=== PATIENT | male | born 1955 | race Caucasian/White ===

== ENCOUNTER 2024-01-18 09:03 | Outpatient (REF) | payer MEDICARE, SELFPAY ==
[2024-01-18 10:18] LABS: Anion Gap 10 (12-20); Blood Urea Nitrogen 14 mg/dL (9-16); Calcium 9.5 mg/dL (8.4-10.2); Carbon Dioxide 26 mmol/L (22-29); Chloride 109 mmol/L (96-108); Estimated Glomerular Filt Rate > 60; Glucose Random 102 mg/dL (60-115); Potassium 4.3 mmol/L (3.3-5.1); Sodium 141 mmol/L (135-145)
[2024-01-18 10:38] LABS: Syphilis Screen Nonreactive (Nonreactive)
[2024-01-18 10:42] LABS: Erythrocyte Sedimentation Rate 3 MM/HR (0-15)
[2024-01-19 13:09] LABS: Lyme Abs Screen <0.90 index
[2024-01-22 22:08] LABS: IgA 142 mg/dL (70-320); IgG 826 mg/dL (600-1540); IgM 236 mg/dL (50-300)
== END 2024-01-18 09:04 | disposition home or self-care (01) ==
LOC: HO.LAB 09:03
PROVIDERS: Visit Provider Psychiatry & Neurology Neurology
DX: R26.9 Unspecified abnormalities of gait and mobility (principal)
CPT/HCPCS: 36415; 80048; 82550; 82784; 85652; 86334; 86617; 86618; 86780

== ENCOUNTER 2024-11-13 09:24 | Outpatient (REF) | payer MEDICARE, SELFPAY ==
[2024-11-13 11:04] LABS: C Reactive Protein 0.13 mg/dL (< or = 0.50)
[2024-11-13 11:30] LABS: Erythrocyte Sedimentation Rate 3 MM/HR (0-15)
[2024-11-14 06:23] LABS: Lyme Abs Screen <0.90 index
== END 2024-11-13 09:25 | disposition home or self-care (01) ==
LOC: HO.LAB 09:24
PROVIDERS: PCP Pediatrics; Visit Provider Psychiatry & Neurology Neurology
DX: G43.009 Migraine without aura, not intractable, without status migrainosus (principal)
CPT/HCPCS: 36415; 85652; 86140; 86617; 86618

== ENCOUNTER 2024-11-25 07:56 | Outpatient (REF) | payer MEDICARE, SELFPAY ==
--- NOTE | ~2024-11-25 | MR_ITS ---
EXAMINATION: MR BRAIN WITHOUT CONTRAST CLINICAL INFORMATION: Tremor. Ataxia. COMPARISON: None available. TECHNIQUE: MRI of the brain was obtained using routine sequences without contrast. FINDINGS: No restricted diffusion. No acute intracranial hemorrhage, mass effect, midline shift, hydrocephalus or herniation. Artis-white matter differentiation is normal. Posterior cranial fossa contents demonstrated no signal abnormality or gross mass effect. No susceptibility signal abnormality within the substantia nigra. Sellar/suprasellar region is normal. Craniocervical junction is intact and normal. Flow-void signal within the main cerebral vessels is normal. Polypoid mucosal thickening, maxillary sinuses. Mucosal thickening ethmoid cells. MR/MR head/brain wo con IMPRESSION: No acute or structural brain abnormality. Electronically signed by: Reynaldo Bruce MD 11/27/2024 11:45 AM EDT
--- OUTSIDE RECORDS SUMMARY | 2024-11-25 08:01 | XMS_ITS | Encounter Summary ---
Author Organization [facility] [place] [address] Care Team Providers Care Ethnology Teacher Name Role Phone Sanna Webb MD Primary Care Provider [phone] Reason for Referral * Imaging (Routine) - Authorized Specialty Diagnoses / Procedures Referred By Contac t Referred To Contact Radiology Diagnoses Encounter for screening for abdominal aortic aneurysm (AAA) in patient 50 years of age or older with history of smoking Procedures US Abdomen Aortic Aneurysm Screening Edita Arguello MD [address] [place] [phone] Phone: tel: fax: [address] [address] Phone: tel: Referral ID Status Reason Start Date Expiration Date V isits Requested Visits Authorized [id number] Authorized 11/21/2024 11/21/2025 1 1 Reason for Visit * Reason Comments Follow-up Encounter Details Date Type Department Care Team (Late st Contact Info) Description 11/21/2024 10:00 AM EDT Office Visit Vascular Surgery - [place] [address] [place] [phone] Ediat Arguello MD [address] [place] [phone] Encounter for screening for abdominal aortic aneurysm (AAA) in patient 50 years of age or older with history of smoking (Primary Dx); Infrarenal abdominal aortic aneurysm (AAA) without rupture ([facility]/HCC V24) Social History Tobacco Use Types Packs/Day Years Used Date Smoking Tobacco: Never Smokeless Tobacco: Never Alcohol Use Standard Drinks/Week Comments Yes 0 (1 standard drink = 0.6 oz pur e alcohol) Sex and Gender Information Value Date Recorded Sex Assigned at Not on file Legal Sex Male 10:26 AM EST Gender Identity Not on file Sexual Orientation Not on file documented as of this encounter Last Filed Vital Signs Vital Sign Reading Time Taken Comments Blood Pressure 128/70 11/21/2024 10:05 AM EDT Pulse 51 11/21/2024 10:05 AM EDT Temperature - - Respiratory Rate - - Oxygen Saturation 96% 11/21/2024 10:05 AM EDT Inhaled Oxygen Concentration - - Weight 109 kg (241 lb) 11/21/2024 10:05 AM EDT Height 188 cm (6' 2 ) 11/21/2024 10:05 AM EDT Body Mass Index 30.94 11/21/2024 10:05 AM EDT documented in this encounter Progress Notes * Edita Arguello MD - 11/21/2024 10:00 AM EDT Your aortic US shows no significant change in your small aneurysm, continue on current medication ,including aspirin 81 mg daily and statin medications.Recheck in 1 year,repeat aortic us in 1 year before next visit, Continue followup with your PCP.walk daily abd often. * Dina Pantoja MA - 11/21/2024 10:00 AM EDT Abdominal Aortic Ultrasound - 11/04/2024 HISTORY: Known AAA. TECHNIQUE: Grayscale, color Doppler, and spectral Doppler ultrasound of the abdominal aorta. COMPARISON: 03/15/2024. FINDINGS: The proximal aorta measures 2.3 cm AP. The mid aorta measures 2.4 cm AP. The distal aorta measures 2.8 cm AP. The common iliac artery measures 1.6 cm on the right and 1.5 cm on the left. There is mild diffuse atherosclerotic luminal irregularity. IMPRESSION: Mild ectasia of the distal abdominal aorta, similar to the previous study. * Edita Arguello MD - 11/21/2024 10:00 AM EDT Images from the original note were not included. PATIENT: Tino Hunter ENCOUNTER: 11/21/2024 EMRN: [id number] : 1955 PCP: Sanna Webb MD CHIEF COMPLAINT: Follow-up HPI: This 69 y.o. male presents for follow-up of small abdominal aortic aneurysm and discussed results of aortic ultrasound done at the [facility] on 03/15/2024. Patient has a history of chronic low back pain and arthritis of hips and shoulders. He also has a history of hypertension hypercholesterolemia, aspirin 81 mg daily and statin medication. Patient is compliant in taking his medications. He walks without any aid. He lives with his . 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 Repeat in five years. COLONOSCOPY 08/31/2017 PROCEDURE: HISTORICAL COLONOSCOPY; COMMENT: 6 mm descending colon polyp: tubular adenoma. COLONOSCOPY 06/06/2016 PROCEDURE: HISTORICAL COLONOSCOPY; COMMENT: adenomas COLONOSCOPY 11/12/2010 PROCEDURE: HISTORICAL COLONOSCOPY; COMMENT: adenoma. COLONOSCOPY 12/21/2022 PROCEDURE: HISTORICAL COLONOSCOPY HIP ARTHROPLASTY PROCEDURE: HISTORICAL HIP REPLACEMENT; COMMENT: Left HIP ARTHROPLASTY 08/2011 PROCEDURE: HISTORICAL HIP REPLACEMENT; COMMENT: right LUMBAR LAMINECTOMY 05/2020 PROCEDURE: HISTORICAL LUMB LAMINECTOMY; COMMENT: L2-3 OTHER SURGICAL HISTORY 07/2014 PROCEDURE: [place] VLVP MITRAL VALVE W/BYPASS RAD RCNSTJ W/WO RING; COMMENT: valve repair, Dr. Sánchez UPPER GASTROINTESTINAL ENDOSCOPY 08/25/2011 PROCEDURE: [place] UPPER GI ENDOSCOPY PERFORMED; COMMENT: erosive esophagitis MEDICATIONS: (reviewed, flow sheet updated) Outpatient Medications Marked as Taking for the 11/21/24 encounter (Office Visit) with Edita Arguello MD Medication Sig Dispense Refill acetaminophen (TYLENOL) 500 mg tablet Take 2 Tablets by mouth every 6 hours as needed. aspirin 81 mg EC tablet Take 81 mg by mouth daily. atorvastatin (LIPITOR) 10 mg tablet Take 1 Tab by mouth daily. cyanocobalamin (VITAMIN B-12) 1,000 mcg tablet Take 1 tablet by mouth daily. divalproex (DEPAKOTE ER) 250 mg 24 hr tablet losartan (COZAAR) 25 mg tablet Take 25 mg by mouth daily. metoprolol succinate (TOPROL-XL) 50 mg 24 hr tablet Take 1 Tablet by mouth daily. sildenafiL (VIAGRA) 25 mg tablet Take 1 Tablet by mouth as needed for Erectile Dysfunction for up to 30 days. ALLERGIES: (reviewed, flow sheet updated) Allergies Allergen Reactions Ciprofloxacin Swelling ROS: GENERAL: No malaise, significant weight loss or fever HEENT: No changes in hearing or vision, nose bleeds or other nasal problems NECK: No lumps, goiter, pain or significant neck swelling RESPIRATORY: No cough, wheezing or shortness of breath CARDIAC: No chest pain or palpitations GI: No abdominal discomfort, blood in stools or black stools : No dysuria, frequency or incontinence MUSCULOSKELETAL: SEE HPI SKIN: No lesions, rash or itching ENDOCRINE: No cold or heat intolerance, polyuria, polydipsia or goiter. NEURO: No persistent headache, syncope, seizures, weakness or numbness VASCULAR: SEE HPI PHYSICAL EXAM: Vitals: 11/21/24 1005 BP: 128/70 BP Location: Left arm Patient Position: Sitting Pulse: 51 SpO2: 96% Weight: 109 kg (241 lb) Height: 1.88 m (74 ) APPEARANCE: Alert and in no acute distress EYES: Pupils, conjunctiva and sclera normal.. NECK: Neck supple, no adenopathy HEART: RRR with no murmurs appreciated LUNG: clear to auscultation GI: soft and non-tender LYMPH NODES: grossly normal MUSCULOSKELETAL: Spine ROM normal. Muscular strength intact. SKIN: is grossly normal NEURO: Awake, alert and oriented x 3 PSYCHIATRIC: Mood and affect are normal VASCULAR: Carotid pulses palpable bilaterally no bruit no JVD. Brachial radial pulses palpable bilaterally. Mild tremors of the hand. Femorals, dorsalis pedis posterior tibial pulses palpable bilaterally. There is no leg edema no ulcers no gangrene. Toes are warm well-perfused. DIAGNOSTIC TESTING:US AORTA RENAL AORTA NODES ( (Order [id number]) Status: Final result PACS Images Show images for US AORTA RENAL AORTA NODES Study Result Narrative & Impression [facility] Diagnostic Imaging Department [address] [place] [id number] Patient: TINO HUNTER /Age/Sex: 1955 - 69 - M Unit#: [id number] [facility] Mn[facility]onic/Ordering Site: AORTA/SPUS Ordering Physician: EDITA ARGUELLO MD US Aorta Renal Aorta Nodes - 03/15/24 - Report Status:Signed INDICATION: Abdominal aortic aneurysm FINDINGS: Ultrasound of the aorta was obtained. Prior relevant imaging studies: Compared to multiple prior studies most recent from March 14, 2023. CTA of the abdomen and pelvis from March 06, 2019 reviewed. Proximal aorta not visualized secondary to bowel gas. Distal abdominal aorta measures up to 3.1 cm transversely and 2.7 cm axially. IMPRESSION: Similar mild ectasia of the distal abdominal aorta. Dictating Physician: ELAN CHAMPAGNE MD Electronically Signed by: ELAN CHAMPAGNE MD Dic Date/Time: 03/15/24 1359 Sign date/Time: 03/15/24 1408 Order Report US AORTA RENAL AORTA NODES (Order #[id number]) on 03/15/24 MyChart Comments Release Not seen Signed by Signed Date/Time Phone Pager ELAN CHAMPAGNE 03/15/2024 2:03 PM [phone] I independently reviewed the study reports. Images were available for review. ASSESSMENT: Infrarenal aortic aneurysm nonruptured PLAN: 69 y.o. male with arterial sclerosis of the aorta and ectasia of the infrarenal aorta, repeated duplex aortic study shows no significant change for the past 2 years. No vascular intervention needed. Recheck in 1 year. Repeat aortic ultrasound in 1 year. Continue follow-up with his PCP for his other comorbidities. Continue all current medications including aspirin 81 mg daily and statin medication. Walk daily and frequently. Continue with daily stretching exercise Patient was educated on the disease process. We discussed signs and symptoms of aortic rupture and distal embolization. His questions answered Patient was counseled on risk factor modification. CC: Sanna Webb MD documented in this encounter Plan of Treatment Upcoming Encounters Date Type Department Care Team (Late st Contact Info) Description 11/26/2025 10:00 AM EDT Office Visit Vascular Surgery - [place] [address] [place] [phone] Edita Arguello MD [address] [place] [address] Scheduled Orders Name Type Priority Associated Diagnoses Orde r Schedule US Abdomen Aortic Aneurysm Screening Imaging Routine Encounter for screening for abdominal aortic aneurysm (AAA) in patient 50 years of age or older with history of smoking Expected: 11/21/2025, Expires: 11/21/2025 documented as of this encounter Visit Diagnoses Diagnosis Encounter for screening for abdominal aortic aneurysm (AAA) in patient 50 years of age or older with history of smoking- Primary Infrarenal abdominal aortic aneurysm (AAA) without rupture ([facility] V24) documented in this encounter Care Teams Ethnology Teacher Relationship Specialty Start Date End Date Sanna Webb MD [address] [place] [id number] PCP - General 01/03/01 documented as of this encounter
--- OUTSIDE RECORDS SUMMARY | 2024-11-25 08:01 | XMS_ITS | Clinical Summary ---
Author Organization [facility] Address [address] [place] [address] Phone Care Team Providers Care Envelope Machine Adjuster Name Role Phone Sanna Webb MD Primary Care Provider [phone] Allergies Active Allergy Reactions Criticality Noted Date Comments Ciprofloxacin Swelling 04/05/2023 Medications acetaminophen (TYLENOL) 500 mg tablet Take 2 Tablets by mouth every 6 hours as needed. Active aspirin 81 mg EC tablet Take 81 mg by mouth daily. Active atorvastatin (LIPITOR) 10 mg tablet Take 1 Tab by mouth daily. 8 Active divalproex (DEPAKOTE ER) 250 mg 24 hr tablet 4 Active losartan (COZAAR) 25 mg tablet Take 25 mg by mouth daily. Active metoprolol succinate (TOPROL-XL) 50 mg 24 hr tablet Take 1 Tablet by mouth daily. Active sildenafiL (VIAGRA) 25 mg tablet Take 1 Tablet by mouth as needed for Erectile Dysfunction for up to 30 days. 3 Active cyanocobalamin (VITAMIN B-12) 1,000 mcg tablet Take 1 tablet by mouth daily. 1 Active Active Problems Problem Noted Date Diagnosed Date Abdominal aortic aneurysm (A AA) without rupture (CMS/HCC V24) 03/13/2019 Aneurysm of left common iliac artery (CMS/HCC V2 4) 01/22/2018 Overview (09/02/2024): Incidental finding by urology on abdominal CT 01/15. 2 cm. (3 cm usually threshold for repair unless symptomatic) No mention of AAA. Depressed left ventricular ejection fraction Hematuria 01/22/2018 Acquired dilation of ascendi ng aorta and aortic root ([facility] V24) 11/09/2016 Overview (09/02/2024): Dilated aortic root and ascending aorta 10/14 ([place]). 3.8 cm SVT (supraventricular tachycardia) ([facility] V24) 10/01/2011 Overview (09/02/2024): HR 150 postop 09/11 Holter cardiology 05/13 Multiple brief episodes symptomatic SVT Esophageal erosions 08/25/2011 Overview (09/02/2024): EGD 08/11---mild erosive esophagitis Cholelithiasis 04/14/2010 Hypercholesteremia 07/18/2007 Overview (09/02/2024): 07/06, Intol simvastatin, pravastatin (constipation) Anxiety 07/07/2007 Hip arthritis 07/07/2007 Overview (09/02/2024): Left THR Right THR 09/11 Tremor 07/07/2007 Overview (09/02/2024): Since teens Vision loss 07/07/2007 Overview (09/02/2024): 07/06--Plaque (prob cholesterol) left eye Encounters Date Type Department Care Team Description 11/21/2024 10:00 AM EDT Office Visit V[facility] - [place] [address] [place] [address] Edita Ledesma MD Encounter for screening for abdominal aortic aneurysm (AAA) in patient 50 years of age or older with history of smoking (Primary Dx); Infrarenal abdominal aortic aneurysm (AAA) without rupture ([facility] V24) 11/04/2024 8:28 AM EDT - 11/04/2024 11:59 PM EDT Hospital Encounter [facility] Ultrasound [address] [place] [phone] Infrarenal abdominal aortic aneurysm (AAA) without rupture ([facility] V24) Discharge Disposition: Home or Self Care from Last 3 Months Immunizations Name Administration Dates Next Due Influenza trivalent, 0.5mL ( Fluad) 65yo and older 04/08/2022,05/14/2021,04/10/2020 Influenza trivalent, 0.5mL, preservative free (Fluarix; FluLaval; Fluzone) ages 6mo and older (Afluria) 3 years and older 05/04/2019,04/18/2011 Influenza, Unspecified 04/18/2023 Pfizer SARS-CoV-2 COVID-19, mRNA, LNP-S, preservative free 05/14/2021,11/12/2020,10/12/2020 Pneumococcal conjugate 20 va lent (Prevnar 20, PCV 20) 2mo and older 01/05/2023 Tdap Tetanus diptheria acell ular pertussis (Boostrix; Adacel) 7yo and older 01/05/2023,08/19/2011 Surgical History Surgery Date Site/Laterality Comments HIP ARTHROPLASTY PROCEDURE: HISTORICAL HIP REPLACEMENT; COMMENT: Left CHOLECYSTECTOMY 05/03/2010 PROCEDURE: HISTORICAL CHOLECYSTECTOMY HIP ARTHROPLASTY 08/2011 PROCEDURE: HISTORICAL HIP REPLACEMENT; COMMENT: right OTHER SURGICAL HISTORY 07/2014 PROCEDURE: [place] VLVP MITRAL VALVE W/BYPASS RAD RCNSTJ W/WO RING; COMMENT: valve repair, Dr. Sánchez COLONOSCOPY 12/07/2006 PROCEDURE: HISTORICAL COLONOSCOPY; COMMENT: Normal; had adenoma in 10/03. Repeat in five years. COLONOSCOPY 08/31/2017 PROCEDURE: HISTORICAL COLONOSCOPY; COMMENT: 6 mm descending colon polyp: tubular adenoma. COLONOSCOPY 06/06/2016 PROCEDURE: HISTORICAL COLONOSCOPY; COMMENT: adenomas UPPER GASTROINTESTINAL ENDOSCOPY 08/25/2011 PROCEDURE: [place] UPPER GI ENDOSCOPY PERFORMED; COMMENT: erosive esophagitis COLONOSCOPY 11/12/2010 PROCEDURE: HISTORICAL COLONOSCOPY; COMMENT: adenoma. CATARACT EXTRACTION PROCEDURE: HISTORICAL CATARACT REMOVAL; COMMENT: 09/2018 LUMBAR LAMINECTOMY 05/2020 PROCEDURE: HISTORICAL LUMB LAMINECTOMY; COMMENT: L2-3 CHOLECYSTECTOMY PROCEDURE: [place] LAPAROSCOPY SURG CHOLECYSTECTOMY COLONOSCOPY 12/21/2022 PROCEDURE: HISTORICAL COLONOSCOPY Medical History Medical History Date Comments Aneurysm of left common pippa c artery ([facility] V24) 01/22/2018 DX:Aneurysm of left common i liac artery (HCC) History of bilateral hip replacements 01/22/2018 DX:History of bilateral hip replacements Dilated aortic root (CMS/HCC V24) 11/09/2016 DX:Dilated aortic root (HCC); COMMENT: 10/14 ([place]). 3.8 cm Depressed left ventricular e jection fraction 01/22/2018 DX:Depressed left ventricula r ejection fraction Hematuria 01/22/2018 DX:Hematuria Cataract DX:Cataract; COM MENT: bilateral Family History Medical History Relation Name Comments Diabetes Brother Coronary artery disease Mother Relation Name Status Comments Brother Mother Social History Tobacco Use Types Packs/Day Years Used Date Smoking Tobacco: Never Smokeless Tobacco: Never Alcohol Use Standard Drinks/Week Comments Yes 0 (1 standard drink = 0.6 oz pur e alcohol) Sex and Gender Information Value Date Recorded Sex Assigned at Not on file Legal Sex Male 10:26 AM EST Gender Identity Not on file Sexual Orientation Not on file Obstetrics History Last Filed Vital Signs Vital Sign Reading [...] Mass Index 30.94 11/21/2024 10:05 AM EDT Plan of Treatment Upcoming Encounters Date Type Department Care Team (Late st Contact Info) Description 11/26/2025 10:00 AM EDT Office Visit V[facility] Surgery - [place] [address] [place] [phone] Edita Ledesma MD [address] [place] [address] Health Maintenance Due Date Last Done Comments Cervical Cancer Screening: Pap Smear 01/19/1976 Social Influencers of Health Screening 07/09/2022 COVID-19 Vaccine (10 - Pfizer risk season) 2024 04/26/2024, 04/24/2023, 04/25/2022, Additional history exists Depression Screening 04/10/2025 04/10/2024 Falls Risk Assessment 04/10/2025 04/10/2024 Hypertension/CHF/CAD Annual BMP Blood Test 04/10/2025 04/10/2024, 04/10/2024 Medicare Annual Wellness Visit 04/10/2025 04/10/2024 Colorectal Cancer Screening: Colonoscopy 12/22/2027 12/21/2022 Cholesterol Screening (Lipid Panel) 04/10/2029 04/10/2024, 04/10/2024 RSV Immunization Adult Patients (1 - 1-dose 75+ series) 2030 DTaP,Tdap,and Td Vaccines (3 - Td or Tdap) 01/05/2033 01/05/2023, 08/19/2011 Hepatitis C Screening Completed 09/22/2000 Pneumococcal Vaccine: 50+ Years Completed 01/05/2023 Zoster Vaccines Completed 02/21/2024, 12/07/2023 Influenza Vaccine Completed 04/16/2024, , 04/17/2023, Additional history exists HIB Vaccines Aged Out No longer eligi ble based on patient's age to complete this topic HPV Vaccines Aged Out No longer eligi ble based on patient's age to complete this topic Hepatitis A Vaccines Aged Out No long er eligible based on patient's age to complete this topic Hepatitis B Vaccines Aged Out No long er eligible based on patient's age to complete this topic IPV Vaccines Aged Out No longer eligi ble based on patient's age to complete this topic MMR Vaccines Aged Out No longer eligi ble based on patient's age to complete this topic Meningococcal ACWY Vaccine Aged Out N o longer eligible based on patient's age to complete this topic Meningococcal B Vaccine Aged Out No l onger eligible based on patient's age to complete this topic RSV Immunization Patients Under 20 months Aged Out No longer eligible based on patient's age to complete this topic Varicella Vaccines Aged Out No longer eligible based on patient's age to complete this topic Procedures Procedure Name Priority Date/Time Associated Diagnosis Comments US RETROPERITONEAL COMPLETE Routine 11/04/2024 8:47 AM EDT Infrarenal abdominal aortic aneurysm (AAA) without rupture (CMS/HCC V24) HM DEPRESSION SCREENING Routine 04/10/2024 ANNUAL BMP BLOOD TEST Routine 04/10/2024 FALLS RISK ASSESSMENT Routine 04/10/2024 LIPID PANEL Routine 04/10/2024 COLONOSCOPY Routine 12/21/2022 HEPATITIS C SCREENING Routine 09/22/2000 from Last 3 Months or Most Recently Relevant to Health Maintenance Results * US Retroperitoneal Complete (11/04/2024 8:47 AM EDT) Anatomical Region Laterality Modality Body Ultrasound 11/05/2024 2:13 PM EDT Impressions 11/05/2024 2:35 PM EDT Mild ectasia of the distal abdominal aorta, similar to the previous study. -------- FINAL REPORT -------- Dictated By: Christiano Hayden Dictated Date: 11/05/2024 14:13 ET Assigned Physician: Christiano Hayden Reviewed and Electronically Signed By: Christiano Hayden Signed Date: 11/05/2024 14:35 ET Workstation ID: [id number] Transcribed By: Self Edit Transcribed Date: 11/05/2024 14:13 ET Narrative 11/05/2024 2:35 PM EDT PROCEDURE: Abdominal aortic ultrasound. HISTORY: Known AAA. TECHNIQUE: Grayscale, color Doppler, and spectral Doppler ultrasound of the abdominal aorta. COMPARISON: 03/15/2024. FINDINGS: The proximal aorta measures 2.3 cm AP. The mid aorta measures 2.4 cm AP. The distal aorta measures 2.8 cm AP. The common iliac artery measures 1.6 cm on the right and 1.5 cm on the left. There is mild diffuse atherosclerotic luminal irregularity. Procedure Note Christiano Hayden MD - 11/05/2024 PROCEDURE: Abdominal aortic ultrasound. HISTORY: Known AAA. TECHNIQUE: Grayscale, color Doppler, and spectral Doppler ultrasound ofthe abdominal aorta. COMPARISON: 03/15/2024. FINDINGS: The proximal aorta measures 2.3 cm AP. The mid aorta measures 2.4 cm AP. The distal aorta measures 2.8 cm AP. The common iliac artery measures 1.6 cm on the right and 1.5 cm on theleft. There is mild diffuse atherosclerotic luminal irregularity. IMPRESSION: Mild ectasia of the distal abdominal aorta, similar to the previousstudy. -------- FINAL REPORT -------- Dictated By: Christiano Hayden Dictated Date: 11/05/2024 14:13 ET Assigned Physician: Christiano Hayden Reviewed and Electronically Signed By: Christiano Hayden Signed Date: 11/05/2024 14:35 ET Workstation ID: [id number] Transcribed By: Self Edit Transcribed Date: 11/05/2024 14:13 ET Edita Ledesma MD [facility] US PROCEDURES Final R esult * Annual BMP Blood Test (04/10/2024) [facility] Annual BMP Blood Test abstracted Result [facility] HEALTH MAINTENANCE Final Result * Falls Risk Assessment (04/10/2024) [facility] Falls Risk Assessment abstracted Result [facility] HEALTH MAINTENANCE Final Result * Depression Screening (04/10/2024) [facility] Depression Screening abstracted Result [facility] HEALTH MAINTENANCE Final Result * (ABNORMAL) Lipid panel (04/10/2024) [facility] LDL/HDL Ratio 4 0 - 4 Triglycerides 136 0 - 150 mg/dL Cholesterol 188 0 - 200 mg/dL HDL 48 >=40 mg/dL LDL Cholesterol 112(A) 0 - 100 mg/dL Blood Venous blood specimen / Unknown Result [facility] LAB BLOOD ORDERABLES Aleyda l Result * Colonoscopy (12/21/2022) [facility] Colonoscopy negative, abstracted Anatomical Region Laterality Modality Other Historical Provider HEALTH MAINTENANCE Final Result * Hepatitis C Screening (09/22/2000) Pathologist [facility] Hepatitis C Screening abstracted Historical Provider HEALTH MAINTENANCE Final Result from Last 3 Months or Most Recently Relevant to Health Maintenance Insurance MEDICARE [facility] Care Teams Envelope Machine Adjuster Relationship Specialty Start Date End Date Sanna Webb MD [address] [place] [id number] PCP - General 01/03/01
== END 2024-11-25 07:57 | disposition home or self-care (01) ==
LOC: HO.MRI 07:56
PROVIDERS: Visit Provider Psychiatry & Neurology Neurology
DX: R25.1 Tremor, unspecified (principal); R27.0 Ataxia, unspecified
CPT/HCPCS: 70551

== ENCOUNTER → 2024-11-25 08:10 | Outpatient (BNV) | payer MEDICARE, SELFPAY | PROVIDERS: Visit Provider Radiology Diagnostic Radiology | DX: R25.1 Tremor, unspecified (principal); R27.0 Ataxia, unspecified | CPT/HCPCS: 70551 ==

== ENCOUNTER 2025-05-14 11:39 | Outpatient (AMB) | payer MEDICARE, SELFPAY ==
--- NOTE | 2025-05-14 11:43 | MHC.OFFVIS ---
Intake Visit Reasons: 3m Allergies ciprofloxacin (From Cipro) Allergy (Unknown, Verified 03/13/25 07:44) Unknown HPI Comments Details: 70 yo man with mild mild bilateral hand tremor, mild cognitive dysfunction, chronic daily headaches. He had a lumbar surgery a few years ago when his dura was probably punctured, as he was told. His MRI of brain at [facility] [facility] in 2024 was normal. One time he went to an urgent care center and was diagnosed and treated for babesiosis but headaches continued. He said that he was about the same. Headaches were still happening. No anxieyt. No new symptoms. Headache was better at night or in bed and reappeared after he moved out of bed. [facility] Medical History (Updated 05/14/25 @ 12:08 by Pieter Jaramillo MD) Ataxia Gait disorder Carpal tunnel syndrome, bilateral upper limbs Carpal tunnel syndrome Anxiety disorder Migraine without aura Cerebellar ataxia Familial tremor Encephalopathy Review of Systems Const Details: Constitutional:?No fever, chills, fatigue, weight loss, or night sweats. HEENT:?c/o headache. No vision changes, hearing loss, nasal congestion, sore throat. Neurological:?No dizziness, syncope, seizures, numbness, tingling, weakness, tremors, memory loss. Psychiatric:?No anxiety, depression, mood swings, sleep disturbance, or hallucinations. Endocrine:?No heat/cold intolerance, polydipsia, polyuria, or hair/skin changes. Hematologic/Lymphatic:?No easy bruising, bleeding, or lymphadenopathy. Integumentary (Skin):?No rash, lesions, itching, or color changes. ? Physical Exam Neuro Other: Mental Status: Alert and oriented to person, place, and time. Normal attention. Normal spontaneous speech, fluency, and comprehension. Cranial Nerves: CN II: Visual garcia full to confrontation, visual acuity intact. CN III, IV, : Pupils equal, round, reactive to light and accommodation. Extraocular movements are normal. CN V: Facial sensation is normal. CN VII: Facial movements symmetrical. CN VIII: Hearing intact to bedside conversation is normal. CN IX, X: Palate elevates symmetrically. CN XI: Shoulder shrug and head turn symmetrical. CN XII: Tongue midline without atrophy or fasciculations. [id number] bilateral [id number]-[id number] ataxia and tremor. Speech: Normal; no dysarthria or tremor. Assessment & Plan Assessment & Plan (1) Familial tremor: Code(s): G25.0 - Essential tremor Category: Medical (2) Headache due to low cerebrospinal fluid pressure: Comment: Meds tried: Topiramate (helped but caused constipation), metoprolol, cyproheptadine, Depakote MRI brain WO at [facility] in Oct 2024: WNL NCV/EMG LE Chronic right lower radiculopathy. Otherwise, no significant abnormality noted. 03/14/24. CT brain WO at [facility] in 2020: Mild cerebellar atrophy, small left caudate area mixed density lesion MRI brain WO at [facility] in 2020: L max sinus disease, otherwise ok MRI brain WWO at [facility] in Apr 2023: No sig finding Code(s): R51.0 - Headache with orthostatic component, not elsewhere classified Category: Medical Plan Impression: 70 years old man with chronic daily postural headache that seems to go away or significantly improved when he is in the bed and reappears when he is up and about. It has not responded much to medicines. Few years ago he had a lumbar procedure done and he was told that there was some complications and his dura was punctured. He said that he was having problem since then. His examination now was nonfocal. Low spinal fluid headache was a possibility. He was educated about this possibility and its potential tedious investigations. CT myelogram was requested to see if we could find the leak. In the meantime he could try topiramate 25 mg twice a day, which has helped him in the past. Orders: Orders CT lumbar post myelography Today R51.0 - Headache with orthostatic component, not elsewhere classified Medications: New topiramate 25 mg PO BID 180 tabs 0RF Discontinued divalproex Discontinued Reason: Doctor's Order 250 mg PO BID 180 tabs 1RF Coding Level of Care Code Est Pt Level 4 (57706) Diagnoses Familial tremor G25.0 Headache due to low cerebrospinal fluid pressure R51.0
== END 2025-05-14 12:09 | disposition home or self-care (01) ==
LOC: HO.HSM 11:40
PROVIDERS: PCP Pediatrics; Visit Provider Psychiatry & Neurology Neurology
DX: G25.0 Essential tremor (principal); R51.0 Headache with orthostatic component, not elsewhere classified; G43.009 Migraine without aura, not intractable, without status migrainosus
CPT/HCPCS: 99214

== ENCOUNTER → 2025-05-14 11:39 | Outpatient (BNVA) | payer MEDICARE, SELFPAY | PROVIDERS: PCP Pediatrics; Visit Provider Psychiatry & Neurology Neurology | DX: R51.0 Headache with orthostatic component, not elsewhere classified (principal); G25.0 Essential tremor | CPT/HCPCS: 99212 ==

== ENCOUNTER 2025-06-27 08:55 | Outpatient (REF) | payer MEDICARE, SELFPAY ==
--- OUTSIDE RECORDS SUMMARY | 2025-06-27 08:59 | XMS_ITS ---
Author Name [facility] Organization Unknown Care Team Organization Name Specialty Phone Email Start Date End Da te [facility] ACO 03/19/2025 [facility] Ariane Porter Primary Care 07/12/2023 024 [facility] Etelvina Sahni MD Primary Care 10/05/2022 03/18/2024 [facility] Termed, PROVIDER Primary Care 06/07/202202/28
--- OUTSIDE RECORDS SUMMARY | 2025-06-27 08:59 | XMS_ITS | Clinical Summary ---
Author Organization [facility] Address [address] [place] [address] Care Team Providers Care Rivet Passer Name Role Phone Marek Webb MD Primary Care Provider Social History Tobacco Use Types Packs/Day Years Used Date Smoking Tobacco: Never Assessed Sex and Gender Information Value Date Recorded Sex Assigned at Not on file Gender Identity Not on file Sexual Orientation Not on file Job Start Date Occupation Industry Not on file Not on file Not on file Plan of Treatment Health Maintenance Due Date Last Done Comments Hepatitis C Screening 1955 COVID-19 Vaccine (#1) 1955 Depression Screening 1967 Preventative Health Evaluation 1973 DTap / Tdap / Td (1 - Tdap) 1974 Colon Cancer Screening (Colonoscopy) 01/19/2000 Shingrix-Zoster Vaccine (1 of 2) 2005 Fall Risk Assessment 01/19/2020 Pneumococcal Vaccine (1 of 1 - PCV) 01/19/2020 Influenza Vaccine (#1) 2025 RSV Adult > 60+ Yrs or Pregn ant (1 - 1-dose 75+ series) 2030 Hepatitis B Vaccines Aged Out No long er eligible based on patient's age to complete this topic RSV Ped < 20 months Aged Out No longe r eligible based on patient's age to complete this topic Care Teams Rivet Passer Relationship Specialty Start Date End Date Marek Webb MD PCP - General Hand Cementer 05/05/20
--- OUTSIDE RECORDS SUMMARY | 2025-06-27 08:59 | XMS_ITS | Clinical Summary ---
Author Organization [facility] [place] [address] Phone Care Team Providers Care Unhairer Name Role Phone Sanna Webb MD Primary Care Provider [phone] Allergies Active Allergy Reactions Criticality Noted Date Comments Ciprofloxacin Swelling 04/05/2023 Medications acetaminophen (TYLENOL) 500 mg tablet Take 2 Tablets by mouth every 6 hours as needed. Active aspirin 81 mg EC tablet Take 81 mg by mouth daily. Active divalproex (DEPAKOTE ER) 250 mg 24 hr tablet 04/08/2024 Active losartan (COZAAR) 25 mg tablet Take 25 mg by mouth daily. Active metoprolol succinate (TOPROL-XL) 50 mg 24 hr tablet Take 1 Tablet by mouth daily. Active atorvastatin (LIPITOR) 20 mg tablet Take 1 tablet (20 mg total) by mouth 1 (one) time each day. Active cyanocobalamin (VITAMIN B-12) 1,000 mcg tablet Take 1 tablet (1,000 mcg total) by mouth 1 (one) time each day. Active Active Problems Problem Noted Date Diagnosed Date Nephrolithiasis 05/14/2025 Overview (05/14/2025): L side HTN (hypertension) 05/14/2025 Osteoarthritis of hip 05/14/2025 Overview (05/14/2025): Left hip replacement in 2000. Right hip replacement on 09/02/2011 Intractable chronic paroxysmal hemicrania 2024 History of mitral valve repair 05/14/2025 Abdominal aortic aneurysm (A AA) without rupture ([facility] V24) 03/13/2019 Aneurysm of left common iliac artery ([facility] V2 4) 01/22/2018 Overview (09/02/2024): Incidental finding by urology on abdominal CT 01/15. 2 cm. (3 cm usually threshold for repair unless symptomatic) No mention of AAA. 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 3.8 cm SVT (supraventricular tachycardia) ([facility] V24) 10/01/2011 Overview (09/02/2024): HR 150 postop 09/11 Holter cardiology 05/13 Multiple brief episodes symptomatic SVT Hypercholesteremia 07/18/2007 Overview (09/02/2024): 07/06, Intol simvastatin, pravastatin (constipation) Tremor 07/07/2007 Overview (09/02/2024): Since teens Resolved Problems Problem Noted Date Diagnosed Date Resolved Date History of MVR with cardiopulmonary bypass 05/14/2025 05/14/2025 Hematuria 01/22/2018 05/14/2025 Esophageal erosions 08/25/2011 05/14/20 Overview (09/02/2024): EGD 08/11---mild erosive esophagitis Cholelithiasis 04/14/2010 05/14/2025 Hip arthritis 07/07/2007 05/14/2025 Overview (09/02/2024): Left THR Right THR 09/11 Vision loss 07/07/2007 05/14/2025 Overview (09/02/2024): 07/06--Plaque (prob cholesterol) left eye Encounters Date Type Department Care Team Description 05/14/2025 9:00 AM EDT Office Visit Adult Medicine - [address] [phone] Anurag Carmichael MD Intractable chronic paroxysmal hemicrania (Primary Dx); Nephrolithiasis; Hypercholesteremia; Tremor; SVT (supraventricular tachycardia) (CMS/HCC V24); Primary hypertension 05/13/2025 Telephone Adult Medicine - [place] [address] [place] [address] Sanna Webb MD 04/16/2025 Telephone [facility] for [facility] [address] [facility] [address] [place] [address] John Smith MD 04/10/2025 11:00 AM EDT Consult [facility] [address] [facility] [address] [place] [address] John Smith MD Headache disorder (Primary Dx); Other migraine without status migrainosus, not intractable; Vitamin D deficiency from Last 3 Months Immunizations Immunization Administration Dates Next Due Influenza Quadravalent, 0.5m l (Fluad) 65yo and older 04/17/2023,05/03/2021 Influenza Quadrivalent, 0.5m l, preservative free (Fluarix; FluLaval; Fluzone) ages 6mo and older (Afluria) 3yo and older 05/10/2018 Influenza trivalent, 0.5mL ( Fluad) 65yo and older 04/08/2022,05/14/2021,04/10/2020 Influenza trivalent, 0.5mL ( Fluzone High-dose) 65yo and older 04/01/2025,04/16/2024,04/08/2022,2020,04/10/2020 Influenza trivalent, 0.5mL, preservative free (Fluarix; FluLaval; Fluzone) ages 6mo and older (Afluria) 3 years and older 05/04/2019,04/18/2011 Influenza trivalent, with preservative (Fluzone; Afluria) 6mo and older 05/04/2019,04/18/2011 Influenza, Unspecified 04/18/2023 Pfizer SARS-CoV-2 COVID-19, mRNA, LNP-S, preservative free 05/14/2021,05/03/2021,11/12/2020,2020,10/12/2020 Pneumococcal conjugate 20 va lent (Prevnar 20, PCV 20) 2mo and older 01/05/2023 Tdap Tetanus diptheria acell ular pertussis (Boostrix; Adacel) 7yo and older 01/05/2023,08/19/2011 Surgical History Surgery Date Site/Laterality Comments HIP ARTHROPLASTY PROCEDURE: HISTORICAL HIP REPLACEMENT; COMMENT: Left CHOLECYSTECTOMY 05/03/2010 PROCEDURE: HISTORICAL CHOLECYSTECTOMY HIP ARTHROPLASTY 08/2011 PROCEDURE: HISTORICAL HIP REPLACEMENT; COMMENT: right OTHER SURGICAL HISTORY 07/2014 PROCEDURE: NE VLVP MITRAL VALVE W/BYPASS RAD RCNSTJ W/WO RING; COMMENT: valve repair, Dr. Sánchez COLONOSCOPY 12/07/2006 PROCEDURE: HISTORICAL COLONOSCOPY; COMMENT: Normal; had adenoma in 10/03. Repeat in five years. COLONOSCOPY 08/31/2017 PROCEDURE: HISTORICAL COLONOSCOPY; COMMENT: 6 mm descending colon polyp: tubular adenoma. COLONOSCOPY 06/06/2016 PROCEDURE: HISTORICAL COLONOSCOPY; COMMENT: adenomas UPPER GASTROINTESTINAL ENDOSCOPY 08/25/2011 PROCEDURE: NE UPPER GI ENDOSCOPY PERFORMED; COMMENT: erosive esophagitis COLONOSCOPY 11/12/2010 PROCEDURE: HISTORICAL COLONOSCOPY; COMMENT: adenoma. CATARACT EXTRACTION PROCEDURE: HISTORICAL CATARACT REMOVAL; COMMENT: 09/2018 LUMBAR LAMINECTOMY 05/2020 PROCEDURE: HISTORICAL LUMB LAMINECTOMY; COMMENT: L2-3 CHOLECYSTECTOMY PROCEDURE: NE LAPAROSCOPY SURG CHOLECYSTECTOMY COLONOSCOPY 12/21/2022 PROCEDURE: HISTORICAL COLONOSCOPY Medical History Medical History Date Comments Aneurysm of left common pippa c artery (CMS/HCC V24) 01/22/2018 DX:Aneurysm of left common i liac artery (HCC) History of bilateral hip replacements 01/22/2018 DX:History of bilateral hip replacements Dilated aortic root (CMS/HCC V24) 11/09/2016 DX:Dilated aortic root (HCC); COMMENT: 10/14 ([place]). 3.8 cm Depressed left ventricular e jection fraction 01/22/2018 DX:Depressed left ventricula r ejection fraction Hematuria 01/22/2018 DX:Hematuria Cataract DX:Cataract; COM MENT: bilateral Family History Medical History Relation Name Comments Diabetes Brother Coronary artery disease Mother Relation Name Status Comments Brother Mother Social History Tobacco Use Types Packs/Day Years Used Date Smoking Tobacco: Never Smokeless Tobacco: Never Alcohol Use Standard Drinks/Week Comments Yes 4 (1 standard drink = 0.6 oz pur e alcohol) weekends Housing Instability Answer Date Recorde d Are you worried that in the next 2 months you may not have stable housing? No 05/13/2025 Food Access & Nutrition Answer Date Rec orded Do you have access to a vari ety of food including fruits and vegetables? Yes 05/13/2025 Access to Healthcare Answer Date Record ed Within the last 3 months, ho w many times did you visit the emergency department for your medical care? 0 05/13/2025 Health Literacy Answer Date Recorded How often do you need to hav e someone help you when you read instructions, pamphlets, or other written material from your doctor or pharmacy? Never 05/13/2025 Caregiver: How often do you need to have someone help you when you read instructions, pamphlets, or other written material from your doctor or pharmacy? Not on file 05/13/2025 Financial Risk Answer Date Recorded How hard is it for you to pa y for the very basics like food, housing, medical care, and air conditioning / heating? Not very hard 05/13/2025 Transportation Answer Date Recorded Has the lack of transportati on kept you from meetings, work, or from getting things needed for daily living? No Has the lack of transportati on kept you from medical appointments or from getting medications? No 05/13/2025 Social Isolation Answer Date Recorded How often do you feel lonely or isolated from th ose around you? Never 05/13/2025 Food Risk Answer Date Recorded Within the past 12 months we worried whether our food would run out before we got money to buy more. Never true 05/13/2025 Within the past 12 months th e food we bought just didn't last and we didn't have money to get more. Never true 05/13/2025 Dependent Care Answer Date Recorded Do you need help finding or paying for care for your loved ones. For example, early childhood or elderly care for an older adult? No 05/13/2025 Education Answer Date Recorded Do you think completing more education or training, like finishing a GED, going to college, or learning a trade, would be helpful for you? No 05/13/2025 Employment and Income Answer Date Recor ded During the last four weeks, have you been actively looking for work? No 05/13/2025 Living Situation Answer Date Recorded What is your living situation? Unrecognized valu e 05/13/2025 Sex and Gender Information Value Date Recorded Sex Assigned at Not on file Legal Sex Male 10:26 AM EST Gender Identity Not on file Sexual Orientation Not on file Obstetrics History Last Filed Vital Signs Vital Sign Reading Time Taken Comments Blood Pressure 133/69 05/14/2025 8:52 AM EDT Pulse 55 05/14/2025 8:52 AM EDT Temperature 35.8 C (96.5 F) 05/14/2025 8:52 AM EDT Respiratory Rate 16 05/14/2025 8:52 AM EDT Oxygen Saturation 97% 04/10/2025 11:10 AM EDT Inhaled Oxygen Concentration - - Weight 105 kg (232 lb) 05/14/2025 8:52 AM EDT Height 182 cm (5' 11.65 ) 05/14/2025 8:52 AM EDT Body Mass Index 31.77 05/14/2025 8:52 AM EDT Plan of Treatment Upcoming Encounters Date Type Department Care Team (Late st Contact Info) Description 08/07/2025 8:30 AM EST Office Visit [facility] [place] [address] [facility] [address] [place] [address] John Smith MD [address] [place] [address] 11/26/2025 10:00 AM EDT Office Visit Vascular Surgery - [place] [address] [place] [address] Edita Ledesma MD [address] [place] [id number] Health Maintenance Due Date Last Done Comments Cervical Cancer Screening: Pap Smear 01/19/1976 Falls Risk Assessment 04/10/2025 04/10/2024 Medicare Annual Wellness Visit 04/10/2025 04/10/2024 COVID-19 Vaccine ( season) 2025 04/05/2025, 04/26/2024, 04/24/2023, Additional history exists Hypertension/CHF/CAD Annual BMP Blood Test 04/10/2026 04/10/2025, 04/10/2024, 04/10/2024 Social Influencers of Health Screening 05/13/2026 05/13/2025 Colorectal Cancer Screening: Colonoscopy 12/22/2027 12/21/2022 Cholesterol Screening (Lipid Panel) 04/10/2029 04/10/2024, 04/10/2024 RSV Immunization Adult Patients (1 - 1-dose 75+ series) 2030 DTaP,Tdap,and Td Vaccines (3 - Td or Tdap) 01/05/2033 01/05/2023, 08/19/2011 Hepatitis C Screening Completed 09/22/2000 Pneumococcal Vaccine: 50+ Years Completed 01/05/2023 Zoster Vaccines Completed 02/21/2024, 12/07/2023 Influenza Vaccine Completed 04/01/2025, , 04/18/2023, Additional history exists Depression Screening Completed 05/13/2025, 04/10/20 HIB Vaccines Aged Out No longer eligi [...] Procedure Name Priority Date/Time Associated Diagnosis Comments CBC WITH AUTO DIFFERENTIAL Routine 04/10/2025 11:57 AM EDT Headache disorder SEDIMENTATION RATE Routine 04/10/2025 11 :57 AM EDT Headache disorder BORRELIA BURGDORFERI ANTIBODY Routine 04/10/2025 11:57 AM EDT Headache disorder CBC AND DIFFERENTIAL Routine 04/10/2025 11:57 AM EDT Headache disorder BUN Routine 04/10/2025 11:57 AM EDT Headache disorder CREATININE, SERUM Routine 04/10/2025 11: 57 AM EDT Headache disorder VITAMIN D 25 HYDROXY Routine 04/10/2025 11:57 AM EDT Headache disorder Vitamin D deficiency VITAMIN B12 Routine 04/10/2025 11:57 AM EDT Other migraine without status migrainosus, not intractable Headache disorder HM DEPRESSION SCREENING Routine 04/10/2024 FALLS RISK ASSESSMENT Routine 04/10/2024 LIPID PANEL Routine 04/10/2024 HM COLONOSCOPY Routine 12/21/2022 HEPATITIS C SCREENING Routine 09/22/2000 from Last 3 Months or Most Recently Relevant to Health Maintenance Results * (ABNORMAL) CBC auto differential (04/10/2025 11:57 AM EDT) WBC 5.6 4.8 - 10.8 K/mcL LAB HEMETOLOGY METHOD 04/10/2025 2:[address] [facility] RBC 5.10 4.50 - 5.50 M/mcL LAB HEMETOLOGY METHOD 04/10/2025 2:[address] [facility] Hemoglobin 16.3 13.5 - 17.5 g/dL LAB HEMETOLOGY METHOD 04/10/2025 2:[address] [facility] Hematocrit 48.4 42.0 - 54.0 % LAB HEMETOLOGY METHOD 04/10/2025 2:[address] [facility] MCV 95.7 79.0 - 98.0 FL LAB HEMETOLOGY METHOD 04/10/2025 2:[address] [facility] MCH 32.2(H) 27.0 - 32.0 pcg LAB HEMETOLOGY METHOD 04/10/2025 2:[address] [facility] MCHC 33.7 32.0 - 37.0 g/dL LAB HEMETOLOGY METHOD 04/10/2025 2:[address] [facility] RDW 12.9 11.0 - 15.0 % LAB HEMETOLOGY METHOD 04/10/2025 2:[address] [facility] Platelets 162 130 - 400 K/mcL LAB HEMETOLOGY METHOD 04/10/2025 2:[address] [facility] MPV 11.6(H) 7.0 - 11.0 FL LAB HEMETOLOGY METHOD 04/10/2025 2:[address] [facility] NRBC 0.0 <1.0 % LAB HEMETOLOGY METHOD 04/10/2025 2:[address] [facility] NRBC Absolute 0.00 <0.10 K/mcL LAB HEMETOLOGY METHOD 04/10/2025 2:[address] [facility] Neutrophils Relative 61.1 % LAB HEMETOLOGY METHOD 04/10/2025 2:[address] [facility] Lymphocytes Relative 22.1 % LAB HEMETOLOGY METHOD 04/10/2025 2:[address] [facility] Monocytes Relative 9.4 % LAB HEMETOLOGY METHOD 04/10/2025 2:[address] [facility] Eosinophils Relative 6.1 % LAB HEMETOLOGY METHOD 04/10/2025 2:[address] [facility] Basophils Relative 0.9 % LAB HEMETOLOGY METHOD 04/10/2025 2:[address] [facility] Immature Granulocytes Relative 0.4 % LAB HEMETOLOGY METHOD 04/10/2025 2:[address] [facility] Neutrophils Absolute 3.40 1.50 - 7.00 K/mcL LAB HEMETOLOGY METHOD 04/10/2025 2:[address] [facility] Lymphocytes Absolute 1.23 1.00 - 5.00 K/mcL LAB HEMETOLOGY METHOD 04/10/2025 2:[address] [facility] Monocytes Absolute 0.52 0.20 - 1.00 K/mcL LAB HEMETOLOGY METHOD 04/10/2025 2:[address] [facility] Eosinophils Absolute 0.34 0.00 - 0.50 K/mcL LAB HEMETOLOGY METHOD 04/10/2025 2:[address] [facility] Basophils Absolute 0.05 0.00 - 0.20 K/mcL LAB HEMETOLOGY METHOD 04/10/2025 2:[address] [facility] Immature Granulocytes Absolute 0.02 0.00 - 0.03 K/mcL LAB HEMETOLOGY METHOD 04/10/2025 2:[address] [facility] Blood Venous blood specimen / Unknown Venipuncture / Unknown 04/10/2025 11:57 AM EDT 04/10/2025 11:58 AM EDT John Smith MD LAB BLOOD ORDERABLES Fin al Result [facility] [address] [place] [address], * Borrelia burgdorferi antibody (04/10/2025 11:57 AM EDT) Pathologist [facility] Lyme Ab Negative Negative LAB CHEMISTRY METHOD 04/11/2025 10:[address] [facility] Comment: No laboratory evidence of infection with B. burgdorferi (Lyme disease). Negative results may occur in patients recently infected (<=14 days) with B. burgdorferi. If recent infection is suspected, repeat testing on a new sample collected in 7- 14 days is recommended. Blood Venous blood specimen / Unknown Venipuncture / Unknown 04/10/2025 11:57 AM EDT 04/10/2025 11:58 AM EDT us John Smith MD LAB BLOOD ORDERABLES Fin al Result Performing Organization Address [facility] de Phone Number [facility] [address] [place] [address], * Creatinine (04/10/2025 11:57 AM EDT) [facility] Creatinine 1.05 0.70 - 1.30 mg/dL LAB CHEMISTRY METHOD 04/10/2025 3:[address] [facility] eGFR 76 >=60 mL/min/1. 73m2 LAB CHEMISTRY METHOD 04/10/2025 3:[address] [facility] Comment:Calculation based on the Chronic Kidney Disease Epidemiology Collaboration (CKD-EPI) equation refit without adjustment for race. Blood Venous blood specimen / Unknown Venipuncture / Unknown 04/10/2025 11:57 AM EDT 04/10/2025 11:58 AM EDT us John Smith MD LAB BLOOD ORDERABLES Fin al Result Performing Organization Address [facility]/ZIP Co de Phone Number [facility] [address] [place] [address], * Vitamin D 25 hydroxy (04/10/2025 11:57 AM EDT) Vit D, 25-Hydroxy 56.7 30.0 - 80.0 ng/mL LAB CHEMISTRY METHOD 04/10/2025 4:[address] [facility] Blood Venous blood specimen / Unknown Venipuncture / Unknown 04/10/2025 11:57 AM EDT 04/10/2025 11:58 AM EDT us John Smith MD LAB BLOOD ORDERABLES Fin al Result [facility] [address] [place] [address], [place] [phone] * Sedimentation rate (04/10/2025 11:57 AM EDT) Sed Rate 2 0 - 20 mm/hr LAB HEMETOLOGY METHOD 04/10/2025 2:[address] [facility] Blood Venous blood specimen / Unknown Venipuncture / Unknown 04/10/2025 11:57 AM EDT 04/10/2025 11:58 AM EDT us John Smith MD LAB BLOOD ORDERABLES Fin al Result [facility] [address] [place] [address], [place] [phone] * BUN (04/10/2025 11:57 AM EDT) BUN 18 5 - 25 mg/dL LAB CHEMISTRY METHOD 04/10/2025 3:[address] [facility] Blood Venous blood specimen / Unknown Venipuncture / Unknown 04/10/2025 11:57 AM EDT 04/10/2025 11:58 AM EDT us John Smith MD LAB BLOOD ORDERABLES Fin al Result [facility] [address] [place] [address], [place] [phone] * Vitamin B12 (04/10/2025 11:57 AM EDT) [facility] Vitamin B-12 847 250 - 900 pcg/mL LAB CHEMISTRY METHOD 04/10/2025 3:[address] [facility] Blood Venous blood specimen / Unknown Venipuncture / Unknown 04/10/2025 11:57 AM EDT 04/10/2025 11:58 AM EDT John Smith MD LAB BLOOD ORDERABLES Fin al Result Performing Organization Address City/[facility]/ZIP Co de Phone Number [facility] [address] [place] [address], [place] [phone] * Falls Risk Assessment (04/10/2024) [facility] Falls Risk Assessment abstracted [facility] Provider HEALTH MAINTENANCE Final Result * Depression Screening (04/10/2024) [facility] Depression Screening abstracted [facility] Provider HEALTH MAINTENANCE Final Result * (ABNORMAL) Lipid panel (04/10/2024) [facility] LDL/HDL Ratio 4 0 - 4 Triglycerides 136 0 - 150 mg/dL Cholesterol 188 0 - 200 mg/dL HDL 48 >=40 mg/dL LDL Cholesterol 112(A) 0 - 100 mg/dL Blood Venous blood specimen / Unknown [facility] Provider LAB BLOOD ORDERABLES Aleyda l Result * Colonoscopy (12/21/2022) Pathologist [facility] Colonoscopy negative, abstracted Anatomical Region Laterality Modality Other [facility] Provider HEALTH MAINTENANCE Final Result * Hepatitis C Screening (09/22/2000) Hepatitis C Screening abstracted Historical Provider HEALTH MAINTENANCE Final Result from Last 3 Months or Most Recently Relevant to Health Maintenance Insurance [facility]ICARE [facility] Care Teams Unhairer Relationship Specialty Start Date End Date Sanna Webb MD [address] [place] [address] GOKUL Delgadillo [address] PCP - General 01/03/01
[2025-06-27 09:53] LABS: Anion Gap 12 (12-20); Blood Urea Nitrogen 16 mg/dL (9-16); Calcium 9.6 mg/dL (8.4-10.2); Carbon Dioxide 29 mmol/L (22-29); Chloride 107 mmol/L (96-108); Estimated Glomerular Filt Rate > 60; Potassium 4.5 mmol/L (3.3-5.1); Sodium 143 mmol/L (135-145)
== END 2025-06-27 08:56 | disposition home or self-care (01) ==
LOC: HO.LAB 08:55
PROVIDERS: PCP Pediatrics; Visit Provider Psychiatry & Neurology Neurology
DX: R51.0 Headache with orthostatic component, not elsewhere classified (principal)
CPT/HCPCS: 36415; 80048

== ENCOUNTER 2025-07-10 07:59 | Outpatient (REF) | payer MEDICARE, SELFPAY ==
--- NOTE | ~2025-07-10 | CT_ITS ---
EXAMINATION: CT LUMBAR SPINE WITH IV CONTRAST CLINICAL INFORMATION: Headache with orthostatic. COMPARISON: None available. TECHNIQUE: Contiguous axial images through the lumbar spine using 2 mm collimation following the IV contrast administration 85 cc Omnipaque 350 strength without reported immediate complications. Sagittal and coronal reformatted images acquired. This CT examination was performed using dose optimization techniques as appropriate, variously including the following: *Automated exposure control *Adjustment of mA and/or kV according to patient size (this includes techniques or standardized protocols for targeted exams where dose is matched to indication/reason for exam; i.e. extremities or head) *Use of iterative reconstruction technique DLP: 758 mGy-cm FINDINGS: Last rib-bearing vertebra labeled T12. 3 mm retrolisthesis at L1-2. 3 mm anterolisthesis at L2-3. 2 mm anterolisthesis at L5-S1. Marginal osteophyte formation and syndesmophyte formation at T12-L1, L1 to, L4-5 and to a lesser extent at L2-3 and L3-4 levels. Decreased intervertebral disc height, endplate sclerosis and vacuum phenomenon at L1 to. Decreased intervertebral disc height and endplate sclerosis at L2-3, L4-5 and to a lesser extent L5-S1. Vacuum phenomenon at L5-S1. Multilevel facet joint hypertrophy from L1 to 2 L5-S1. Calcifications of the ligamentum flavum, L2-3, L3-4 and L4-5 levels. Syndesmophyte formation at the sacroiliac joints with sclerosis and vacuum phenomenon. Rudimentary ribs at T12. T12-L1: No gross central spinal canal or neuroforamina stenosis. L1-2: Broad-based disc bulging. Facet joint and ligamentum flavum hypertrophy producing the AP diameter of the central spinal canal and bilateral neuroforamina stenosis. L2-3: Broad-based disc bulging. Facet joint and ligamentum flavum hypertrophy. Central spinal canal and bilateral neuroforamina stenosis likely compressing the neural elements of the thecal sac. L3-4: Broad-based disc bulging. Facet joint and ligamentum flavum hypertrophy likely resulting in central spinal canal and bilateral neuroforamina stenosis likely compressing the neural elements of the thecal sac. L4-5: Broad-based disc bulging. Facet joint and ligamentum flavum hypertrophy. Central spinal canal and bilateral neuroforamina stenosis compressing the neural elements. L5-S1: Broad-based disc bulging. Facet joint hypertrophy. Central spinal canal and bilateral neuroforamina stenosis. No prevertebral compartment hematoma, mass or fluid collections. Mixed plaques throughout the abdominal aorta wall and iliac arteries. Abdominal aorta suprarenal segment measures 30 x 29 mm. Abdominal aorta, infrarenal segment measures 28 x 26 mm. Abdominal aorta, distal segment measures 33 x 28 mm. Right common iliac artery measures 18 mm maximum dimension. Left common iliac artery measures 22 mm in maximum dimension. Focal narrowing/stenosis secondary to mixed plaque in the left common iliac artery. Calcified plaques in the origin of the superior mesenteric artery, main renal arteries. Nonobstructing nephrolithiasis, right kidney. Multiple less than 1 cm cyst, both kidneys. Status post cholecystectomy. Common bile duct measures [address]/CT lumbar spine w IV con IMPRESSION: Multilevel spondylosis resulting in grade 1 retrolisthesis L1 to and grade 1 anterolisthesis L2-3 and L5-S1 causing the multilevel severe central spinal canal stenosis from L2-3 to L4-5 and bilateral neuroforamina stenosis from L1-2 to L5-S1. 33 mm ectasia, distal abdominal aorta. Atherosclerosis disease resulting in 40% stenosis distal abdominal aorta and 50% stenosis left common iliac artery. Nonobstructing nephrolithiasis, right kidney. Electronically signed by: Reynaldo Bruce MD 07/10/2025 09:11 AM [facility]
[2025-07-10] MEDS: iohexoL 350 MG/ML 100 ML INFUS..BTL 85 ML IV (08:52)
== END 2025-07-10 08:00 ==
LOC: HO.CT 07:59
PROVIDERS: PCP Pediatrics; Visit Provider Psychiatry & Neurology Neurology
DX: R51.9 Headache, unspecified (principal)
CPT/HCPCS: 72132; Q9967

== ENCOUNTER → 2025-07-10 08:02 | Outpatient (BNV) | payer MEDICARE, SELFPAY | PROVIDERS: PCP Pediatrics; Visit Provider Radiology Diagnostic Radiology | DX: M47.817 Spondylosis without myelopathy or radiculopathy, lumbosacral region (principal); M48.07 Spinal stenosis, lumbosacral region; I77.811 Abdominal aortic ectasia; I70.0 Atherosclerosis of aorta; N20.0 Calculus of kidney | CPT/HCPCS: 72132 ==

== ENCOUNTER 2025-07-22 13:20 | Outpatient (AMB) | payer MEDICARE, SELFPAY ==
--- NOTE | 2025-07-22 13:54 | MHC.OFFVIS ---
Intake Visit Reasons: Results Allergies ciprofloxacin (From Cipro) Allergy (Unknown, Verified 03/13/25 07:44) Unknown HPI Comments Details: 70 years old man with chronic daily postural headache that seems to go away or significantly improved when he is in the bed and reappears when he is up and about. It has not responded much to medicines. Few years ago he had a lumbar procedure done and he was told that there was some complications and his dura was punctured. He said that he was having problem since then. His examination now was nonfocal. Low spinal fluid headache was a possibility. He was educated about this possibility and its potential tedious investigations. He is presenting for follow-up evaluation of persistent postural headaches and to review recent imaging. He reports no change in his headaches, which worsen almost instantaneously upon getting up from bed and are still present while lying down. A recent medication did not provide any relief, and a previous medication caused constipation. He is currently taking divalproex acid but states it does not significantly improve his symptoms. The patient has a history of kidney stones and is currently undergoing ultrasound treatments for them. He reports having back pain with a severity of 7-8 on a 10-point scale. He has a history of a prior back surgery which he states almost caused paralysis. The patient is also aware of and under annual surveillance by another specialist for issues with his blood vessels, including the aorta. He maintains an active lifestyle, walking approximately three miles daily, weather permitting. [facility] Medical History (Updated 07/22/25 @ 14:09 by Pieter Jaramillo MD) Ataxia Gait disorder Carpal tunnel syndrome, bilateral upper limbs Carpal tunnel syndrome Anxiety disorder Migraine without aura Cerebellar ataxia Familial tremor Encephalopathy Review of Systems Narrative - Neurological: Reports persistent, daily, postural headaches that worsen upon standing. - Musculoskeletal: Reports back pain rated 7-8/10. - Gastrointestinal: Reports a history of constipation with a previous medication. - Genitourinary: Reports a history of kidney stones and is undergoing current treatment for them. Physical Exam Neuro Other: Mental Status: Alert and oriented to person, place, and time. Normal attention. Normal spontaneous speech, fluency, and comprehension. Cranial Nerves: CN II: Visual garcia full to confrontation, visual acuity intact. CN III, IV, : Pupils equal, round, reactive to light and accommodation. Extraocular movements are normal. CN V: Facial sensation is normal. CN VII: Facial movements symmetrical. CN VIII: Hearing intact to bedside conversation is normal. CN IX, X: Palate elevates symmetrically. CN XI: Shoulder shrug and head turn symmetrical. CN XII: Tongue midline without atrophy or fasciculations. Extrapyramidal: Full facial expressions and blinking. No rigidity. Movements are appropriate with no tremor or abnormality. Speech: Normal; no dysarthria or tremor. Assessment & Plan Assessment & Plan (1) Familial tremor: Code(s): G25.0 - Essential tremor Category: Medical (2) Migraine without aura: Code(s): G43.009 - Migraine without aura, not intractable, without status migrainosus Category: Medical Qualifiers: Status migrainosus presence: without status migrainosus Intractability: not intractable Qualified Code(s): G43.009 - Migraine without aura, not intractable, without status migrainosus (3) Headache due to low cerebrospinal fluid pressure: Comment: Meds tried: Topiramate (helped but caused constipation), metoprolol, cyproheptadine, Depakote CT [place] [facility] [place]: Mod to severe multilevel lumbar spinal stenosis MRI brain [place] [facility] [place]: WNL NCV/EMG LE Chronic right lower radiculopathy. Otherwise, no significant abnormality noted. 03/14/24. CT brain WO at [place] in 2020: Mild cerebellar atrophy, small left caudate area mixed density lesion MRI brain WO at [place] in 2020: L max sinus disease, otherwise ok MRI brain WWO at [facility] in Apr 2023: No sig finding Code(s): R51.0 - Headache with orthostatic component, not elsewhere classified Category: Medical Plan Impression: a: Chronic headache with suspicion of low pressure spinal headaches b: Mod to severe lumbar spinal stenosis w/o neurogenic claudication Rec: CT Myelogram to find any potential leak for low pressure type headaches. I explained to the patient that his postural headaches are suspicious for a low-pressure headache, potentially from a spinal fluid leak, which is why a CT myelogram is necessary. I informed him that an incorrect test was performed and that the correct CT myelogram will be rescheduled at no cost. I reassured him his condition is not cancer, MS, or Parkinson's disease. We discussed a therapeutic trial of increasing his divalproex acid to 500 mg twice daily for a possible migraine component and agreed that if this is effective, we could potentially avoid the CT myelogram and its procedural risks. We reviewed the incidental findings from the recent CT scan, including lumbar spinal stenosis. I explained that because his walking distance is not functionally limited, surgery is not indicated at this time, which the patient agreed with, citing a poor outcome with a prior back surgery. We also acknowledged the CT finding related to his aorta and confirmed he is under appropriate specialist care for this known issue. I provided instructions on how to obtain his imaging for an upcoming appointment with another provider. Medications: Discontinued topiramate Discontinued Reason: Doctor's Order 25 mg PO BID 180 tabs 0RF Coding Level of Care Code Est Pt Level 4 (48366) Diagnoses Familial tremor G25.0 Migraine without aura and without status migrainosus, not intractable G43.009 Status migrainosus presence: without status migrainosus Intractability: not intractable Headache due to low cerebrospinal fluid pressure R51.0
--- OUTSIDE RECORDS SUMMARY | 2025-07-22 14:30 | XMS_ITS | Clinical Summary ---
Author Organization [facility] Prior to 12/28/24 Address [address] [place] [address] Care Team Providers Care Search Marketing Analyst Name Role Phone Marek Webb MD Primary Care Provider [phone] Social History Tobacco Use Types Packs/Day Years [...] age to complete this topic Care Teams Search Marketing Analyst Relationship Specialty Start Date End Date Marek Webb MD PCP - General Education Professor 05/05/20
--- OUTSIDE RECORDS SUMMARY | 2025-07-22 14:30 | XMS_ITS | Clinical Summary ---
Author Organization 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 2 cm. (3 cm usually threshold for repair unless symptomatic) No mention of AAA. Depressed left ventricular ejection fraction History of bilateral hip replacements 01/22/2018 Acquired dilation of ascending aorta and aortic root 11/09/2016 Overview (09/02/2024): Dilated aortic root and ascending aorta 10/14 ([place]). 3.8 cm SVT (supraventricular tachycardia) 10/01/2011 Overview (09/02/2024): HR 150 postop 09/11 Holter cardiology 05/13 Multiple brief episodes symptomatic SVT Hypercholesteremia 07/18/2007 Overview (09/02/2024): 07/06, Intol simvastatin, pravastatin (constipation) Tremor 07/07/2007 Overview (09/02/2024): Since teens Resolved Problems Problem Noted Date Diagnosed Date Resolved Date History of MVR with cardiopulmonary bypass 05/14/2025 05/14/2025 Hematuria 01/22/2018 05/14/2025 Esophageal erosions 08/25/2011 05/14/20 25 Overview (09/02/2024): EGD 08/11---mild erosive esophagitis Cholelithiasis 04/14/2010 05/14/2025 Hip arthritis 07/07/2007 05/14/2025 Overview (09/02/2024): Left THR Right THR 09/11 Vision loss 07/07/2007 05/14/2025 Overview (09/02/2024): 07/06--Plaque (prob cholesterol) left eye Encounters Date Type Department Care Team Description 05/14/2025 9:00 AM EDT Office Visit Adult Medicine [place] [address] [place] [phone] Anurag Carmichael MD Intractable chronic paroxysmal hemicrania (Primary Dx); Nephrolithiasis; Hypercholesteremia; Tremor; SVT (supraventricular tachycardia) ([facility] V24); Primary hypertension 05/13/2025 Telephone Adult Medicine - [place] [address] [place] [address] Sanna Webb MD from Last 3 Months Immunizations Immunization Administration [...] 6mo and older 05/04/2019,04/18/2011 Influenza, Unspecified 04/18/2023 Unblab SARS-CoV-2 COVID-19, mRNA, LNP-S, preservative free 05/14/2021,05/03/2021,11/12/2020,2020,10/12/2020 [...] COMMENT: right OTHER SURGICAL HISTORY 07/2014 PROCEDURE: CT VLVP MITRAL VALVE W/BYPASS RAD RCNSTJ W/WO RING; COMMENT: valve repair, Dr. Sánchez COLONOSCOPY 12/07/2006 PROCEDURE: HISTORICAL COLONOSCOPY; COMMENT: Normal; had adenoma in 10/03. Repeat in five years. COLONOSCOPY 08/31/2017 PROCEDURE: HISTORICAL COLONOSCOPY; COMMENT: 6 mm descending colon polyp: tubular adenoma. COLONOSCOPY 06/06/2016 PROCEDURE: HISTORICAL COLONOSCOPY; COMMENT: adenomas UPPER GASTROINTESTINAL ENDOSCOPY 08/25/2011 PROCEDURE: CT UPPER GI ENDOSCOPY PERFORMED; COMMENT: erosive esophagitis COLONOSCOPY 11/12/2010 PROCEDURE: HISTORICAL COLONOSCOPY; COMMENT: adenoma. CATARACT EXTRACTION PROCEDURE: HISTORICAL CATARACT REMOVAL; COMMENT: 09/2018 LUMBAR LAMINECTOMY 05/2020 PROCEDURE: HISTORICAL LUMB LAMINECTOMY; COMMENT: L2-3 CHOLECYSTECTOMY PROCEDURE: CT LAPAROSCOPY SURG CHOLECYSTECTOMY COLONOSCOPY 12/21/2022 PROCEDURE: HISTORICAL [...] Record ed Within the last 3 months, lauren sampson many times did you visit the emergency [...] care for your loved ones. For example, child welfare counselor or elderly care for an older adult? [...] on file Sexual Orientation Not on file Last Filed Vital Signs Vital Sign Reading [...] Care Team (Late st Contact Info) Description 07/28/2025 3:00 PM EST Office Visit Adult Medicine - [place] [address] [place] [phone] Carmen Beauchamp PA [address] [place] [phone] 08/07/2025 8:30 AM EST Office Visit [facility] [place] [address] [facility] [address] [place] [phone] John Smith MD [address] [place], [place] [phone] 11/26/2025 10:00 AM EDT Office Visit Vascular Surgery - [place] [address] [facility] [address] [place] [phone] Edita Ledesma MD [address] [place] [phone] Health Maintenance Due Date Last Done Comments [...] Procedure Name Priority Date/Time Associated Diagnosis Comments EXTERNAL CT REPORT 07/10/2025 EXTERNAL CLINICAL LAB 06/30/2025 CREATININE, SERUM Routine 04/10/2025 11: 57 AM EDT Headache disorder DEPRESSION SCREENING Routine 04/10/2024 FALLS RISK ASSESSMENT Routine 04/10/2024 LIPID PANEL Routine 04/10/2024 COLONOSCOPY Routine 12/21/2022 HEPATITIS C SCREENING Routine 09/22/2000 from Last 3 Months or Most Recently Relevant to Health Maintenance Results * External CT Report (07/10/2025) Anatomical Region Laterality Modality Computed Tomogra phy Provider [facility] PROCEDURES Final Result * External clinical lab (06/30/2025) Provider [facility] LAB BLOOD ORDERABLES Fin al Result * Creatinine (04/10/2025 11:57 AM EDT) Pathologist [facility] Creatinine 1.05 0.70 - 1.30 mg/dL LAB CHEMISTRY METHOD 04/10/2025 3:17 PM EDT [facility] eGFR 76 >=60 mL/min/1. 73m2 LAB CHEMISTRY METHOD 04/10/2025 3:17 PM EDT [facility] Comment:Calculation based on the Chronic Kidney Disease Epidemiology Collaboration (CKD-EPI) equation refit without adjustment for race. Blood Venous blood specimen / Unknown Venipuncture / Unknown 04/10/2025 11:57 AM EDT 04/10/2025 11:58 AM EDT John Smith MD LAB BLOOD ORDERABLES Fin al Result [facility] [address] [place] [address], * Falls Risk Assessment (04/10/2024) Pathologist [facility] Falls Risk Assessment abstracted Joyce Hopson MD HEALTH MAINTENANCE Final Result * Depression Screening (04/10/2024) Pathologist [facility] Depression Screening abstracted [facility] Provider HEALTH MAINTENANCE Final Result * (ABNORMAL) Lipid panel (04/10/2024) [facility] LDL/HDL Ratio 4 0 - 4 Triglycerides 136 0 - 150 mg/dL Cholesterol 188 0 - 200 mg/dL HDL 48 >=40 mg/dL LDL Cholesterol 112(A) 0 - 100 mg/dL Blood Venous blood specimen / Unknown Result [facility] Provider LAB BLOOD ORDERABLES Aleyda l Result * Colonoscopy (12/21/2022) [facility] Colonoscopy negative, abstracted Anatomical Region Laterality Modality Other Result [facility] Provider HEALTH MAINTENANCE Final Result * Hepatitis C Screening (09/22/2000) [facility] Hepatitis C Screening abstracted [facility] Provider HEALTH MAINTENANCE Final Result from Last 3 Months or Most Recently Relevant to Health Maintenance Insurance [facility] Care Teams Usability Engineer Relationship Specialty Start Date End Date Sanna Webb MD [address] [place] [id number] PCP - General 01/03/01
== END 2025-07-22 14:56 | disposition home or self-care (01) ==
LOC: HO.HSM 13:21
PROVIDERS: PCP Pediatrics; Visit Provider Psychiatry & Neurology Neurology
DX: G25.0 Essential tremor (principal); G43.009 Migraine without aura, not intractable, without status migrainosus; R51.0 Headache with orthostatic component, not elsewhere classified
CPT/HCPCS: 99214

== ENCOUNTER → 2025-07-22 13:20 | Outpatient (BNVA) | payer MEDICARE, SELFPAY | PROVIDERS: PCP Pediatrics; Visit Provider Psychiatry & Neurology Neurology | DX: G25.0 Essential tremor (principal); G43.009 Migraine without aura, not intractable, without status migrainosus | CPT/HCPCS: 99212 ==